=== PATIENT | female | born 1985 | race Caucasian/White ===

== ENCOUNTER 2016-06-26 06:56 | Observation (INO) ==
[2016-06-26] MEDS ORDERED: *HR* FentaNYL (PF) 100 MCG/2 ML VIAL IVP ONE (07:15)
[2016-06-26] MEDS ORDERED: Ondansetron 4 MG/2 ML VIAL IVP STA (07:15)
--- NOTE | 2016-06-26 07:17 | Emergency Department Note ---
Disposition Clinical Impression: Acute appendicitis, uncomplicated Disposition: Admitted As Inpatient Condition: Good Referrals: NO,PCP [Primary Care Provider] - Forms: Work/School Release, ED Satisfaction Letter Abdominal Pain HPI - General Chief Complaint: ED Abdominal Pain Stated Complaint: Abd Pain Time Seen by Provider: 06/26/16 07:02 Source: patient Nursing Notes Reviewed: Yes Vital Signs Reviewed: Yes - History of Present Illness HPI Narrative: 30-year-old female with no reported history presents to the ED with a chief complaint of abdominal pain. She reports 24 hours of sharp, constant abdominal pain that was progressive in onset. She reports that beginning periumbilically and migrating to the right lower quadrant. She has had some nausea without vomiting. Subjective chills without measured fever. She denies any adnexal or pelvic pain. She has had no pelvic discharge or bleeding. She has had a tubal ligation in the past and denies current . Pain does not radiate into her back or flank. Pain Scale: 4 All systems ED: reviewed and negative except as stated. Constitutional: Reports: chills. Denies: fever Cardiovascular: Denies: chest pain Respiratory: Denies: cough, dyspnea Gastrointestinal: Reports: abdominal pain, nausea. 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 S1, S2. No murmurs, rubs or gallops. Respiratory: Breath sounds clear bilaterally. No wheezing, rales or rhonchi. No resp distress Abdomen: Abdomen is soft without any rebound or rigidity. She does have some voluntary guarding with palpation of the right lower quadrant. There is no palpable hernia or mass. She has normal bowel sounds throughout. Negative Flores's. Eyes: No scleral icterus, conjunctiva clear HENT: No oral mucosal lesions. Moist mucous membranes Neuro: Alert and oriented 3 Musculoskeletal: No joint tenderness or swelling Skin: No lesions. No diaphoresis. Normal turgor. Normal color Psych: Appropriate - General Limitations: no limitations General appearance: alert, in no apparent distress, appears intoxicated Course Course Narrative: Presents with 24 hours of abdominal pain. On exam she has right lower quadrant focal tenderness. She is afebrile and appears well. Labs reveal leukocytosis at 14.8. We did perform a CT scan of the abdomen which shows dilation of the appendix with periappendiceal stranding consistent with acute appendicitis. Patient's pain and nausea controlled in the emergency department. I discussed with the on-call surgeon, Dr. Soto who will come evaluate the patient in the emergency department. Vital Signs Temperature 97.8 F 06/26/16 06:59 Pulse Rate 117 06/26/16 06:59 Respiratory Rate 16 06/26/16 06:59 Blood Pressure 123/89 06/26/16 06:59 O2 Sat by Pulse Oximetry 99 06/26/16 06:59 Temperature 97.8 F 06/26/16 06:59 Pulse Rate 94 06/26/16 07:58 Respiratory Rate 16 06/26/16 07:58 Blood Pressure 122/84 06/26/16 07:58 O2 Sat by Pulse Oximetry 96 06/26/16 07:58 Oxygen Delivery Oxygen Delivery Room Air Abdominal Pain - Lab Data Result diagrams: 06/26/16 07:38 06/26/16 07:38 Lab Results 06/26/16 06/26/16 06/26/16 Range/Units 07:38 07:38 07:42 WBC 14.8 H (4.3-11.1) K/mcL RBC 5.43 H (3.82-4.97) M/mcL Hgb 14.5 (11.5-15.4) g/dL Hct 43.9 (35.3-44.9) % MCV 80.8 L (83.0-100.0) fL MCH 26.7 L (28.0-33.3) pg MCHC 33.0 (31.6-35.5) g/dL RDW 13.4 (11.5-14.5) % Plt Count 224 (140-400) K/mcL MPV 11.7 (9.4-12.4) fL Immature Gran % 0.3 (0-4) % Seg Neutrophils % 77.4 % Lymphocytes % 14.5 % Monocytes % 6.4 % Eosinophils % 1.1 % Basophils % 0.3 % Neutrophils # 11.5 H (1.6-8.9) K/mcL Lymphocytes # 2.1 (0.6-4.6) K/mcL Monocytes # 0.9 (0.0-1.3) K/mcL Eosinophils # 0.2 (0.0-0.6) K/mcL Basophils # 0.1 (0.0-0.2) K/mcL Sodium 138 (136-145) mEq/L Potassium 4.0 (3.5-4.5) mEq/L Chloride 107 (98-109) mEq/L Carbon Dioxide 22 (19-29) mEq/L BUN 10 (7-20) mg/dL Creatinine 0.76 (0.57-1.11) mg/dL Est GFR ( Amer) > 60 (> 60) Est GFR (Non-Af Amer) > 60 (> 60) BUN/Creatinine Ratio 13 (6-26) Glucose 104 H (70-99) mg/dL Calculated Osmolality 285 (280-300) Calcium 9.5 (8.6-10.8) mg/dL Urine Color Yellow (Yellow) Urine Clarity Slightly Hazy (Clear) Urine pH 7.0 (5.0-8.0) pH Units Ur Specific [place] 1.014 (1.010-1.025) Urine Protein Negative (Neg-Trace) mg/dL Urine Glucose (UA) Normal (Normal) mg/dL Urine Ketones Negative (Negative) mg/dL Urine Blood Moderate H (Negative) Urine Nitrite Negative (Negative) Urine Bilirubin Negative (Negative) Urine Urobilinogen Normal (Normal) mg/dL Ur Leukocyte Esterase Negative (Negative) Urine Microscopic RBC 0-3 (0-3) per hpf Urine Microscopic WBC 0-3 (0-3) per hpf Ur Squamous Epith Cells Many H (None-Few) per lpf Urine Bacteria Few (None-Few) per hpf Hyaline Casts None Seen (None-Few) per lpf Urine Mucus Few (Few) Urine Test (Negative) 06/26/16 Range/Units 07:42 WBC (4.3-11.1) K/mcL RBC (3.82-4.97) M/mcL Hgb (11.5-15.4) g/dL Hct (35.3-44.9) % MCV (83.0-100.0) fL MCH (28.0-33.3) pg MCHC (31.6-35.5) g/dL RDW (11.5-14.5) % Plt Count (140-400) K/mcL MPV (9.4-12.4) fL Immature Gran % (0-4) % Seg Neutrophils % % Lymphocytes % % Monocytes % % Eosinophils % % Basophils % % Neutrophils # (1.6-8.9) K/mcL Lymphocytes # (0.6-4.6) K/mcL Monocytes # (0.0-1.3) K/mcL Eosinophils # (0.0-0.6) K/mcL Basophils # (0.0-0.2) K/mcL Sodium (136-145) mEq/L Potassium (3.5-4.5) mEq/L Chloride (98-109) mEq/L Carbon Dioxide (19-29) mEq/L BUN (7-20) mg/dL Creatinine (0.57-1.11) mg/dL Est GFR ( Amer) (> 60) Est GFR (Non-Af Amer) (> 60) BUN/Creatinine Ratio (6-26) Glucose (70-99) mg/dL Calculated Osmolality (280-300) Calcium (8.6-10.8) mg/dL Urine Color (Yellow) Urine Clarity (Clear) Urine pH (5.0-8.0) pH Units Ur Specific [place] (1.010-1.025) Urine Protein (Neg-Trace) mg/dL Urine Glucose (UA) (Normal) mg/dL Urine Ketones (Negative) mg/dL Urine Blood (Negative) Urine Nitrite (Negative) Urine Bilirubin (Negative) Urine Urobilinogen (Normal) mg/dL Ur Leukocyte Esterase (Negative) Urine Microscopic RBC (0-3) per hpf Urine Microscopic WBC (0-3) per hpf Ur Squamous Epith Cells (None-Few) per lpf Urine Bacteria (None-Few) per hpf Hyaline Casts (None-Few) per lpf Urine Mucus (Few) Urine Test Negative (Negative) Attestation Statement - Attestation Attestation: I examined this patient and my medical decision-making was reviewed with the Resident Physician. I agree with the documented findings, disposition and treatment plan as described except to the extent set forth below. Clinical suspicion for appy is moderate. Has diffuse pain migrating to RLQ/ right flank. No fever, has nausea without vomiting. Significant anorexia. Tender a few cm superior to McBurney's point, no guarding/peritonitis. CT c/w uncomplicated appy. Surgery consulted.
[2016-06-26 07:48] LABS: Basophils # 0.1 K/mcL (0.0-0.2); Basophils % 0.3 %; Eosinophils # 0.2 K/mcL (0.0-0.6); Eosinophils % 1.1 %; Hematocrit 43.9 % (35.3-44.9); Hemoglobin 14.5 g/dL (11.5-15.4); Immature Granulocytes % 0.3 % (0-4); Lymphocytes # 2.1 K/mcL (0.6-4.6); Lymphocytes % 14.5 %; Mean Corpuscular Hemoglobin 26.7 pg (28.0-33.3); Mean Corpuscular Volume 80.8 fL (83.0-100.0); Mean Platelet Volume 11.7 fL (9.4-12.4); Monocytes # 0.9 K/mcL (0.0-1.3); Monocytes % 6.4 %; Neutrophils # 11.5 K/mcL (1.6-8.9); Platelet Count 224 K/mcL (140-400); Red Blood Count 5.43 M/mcL (3.82-4.97); Red Cell Distribution Width 13.4 % (11.5-14.5); Segmented Neutrophils % 77.4 %
[2016-06-26 08:02] LABS: Bilirubin,Urine Negative (Negative); Blood,Urine Moderate (Negative); Color,Urine Yellow (Yellow); Glucose,Urine (UA) Normal (Normal); Ketones,Urine Negative (Negative); Leukocyte Esterase,Urine Negative (Negative); Nitrite,Urine Negative (Negative); Protein,Urine Negative (Neg-Trace); Specific Gravity,Urine 1.014 (1.010-1.025); Urobilinogen,Urine Normal (Normal)
[2016-06-26 08:02] LABS: BUN/Creatinine Ratio 13 (6-26); Blood Urea Nitrogen 10 mg/dL (7-20); Calcium 9.5 mg/dL (8.6-10.8); Carbon Dioxide 22 mEq/L (19-29); Chloride 107 mEq/L (98-109); Glucose 104 mg/dL (70-99); Osmolality,Calculated 285 (280-300); Sodium 138 mEq/L (136-145); eGFR For African Americans > 60 (> 60); eGFR For Non-African Americans > 60 (> 60)
[2016-06-26 08:05] LABS: Bacteria,Urine Few per hpf (None-Few); Hyaline Casts,Urine None Seen per lpf (None-Few); RBC,Urine 0-3 per hpf (0-3); Squamous Epithelial Cell,Urine Many per lpf (None-Few); WBC,Urine 0-3 per hpf (0-3)
[2016-06-26 08:15] LABS: Clarity,Urine Slightly Hazy (Clear)
[2016-06-26 08:34] LABS: Mucus,Urine Few (Few)
[2016-06-26] MEDS ORDERED: *HR* Morphine 2 MG/ML SYRINGE IVP STA (08:50)
[2016-06-26] MEDS ORDERED: cefOXitin 2,000 MG in D5% in Water (Mini-Bag+) 100 ML IVPB ONE (09:16)
[2016-06-26] MEDS ORDERED: *HR* FentaNYL (PF) 100 MCG/2 ML VIAL ONE ×2 (09:28→10:25)
[2016-06-26] MEDS ORDERED: *HR* Propofol 200 MG/20 ML VIAL IVP ONE (09:28)
[2016-06-26] MEDS ORDERED: Lidocaine -MPF 2% 2 ML VIAL ONE (09:29)
[2016-06-26] MEDS ORDERED: *HR* Rocuronium Bromide 50 MG/5 ML VIAL ONE (09:29)
[2016-06-26] MEDS ORDERED: Ondansetron 4 MG/2 ML VIAL ONE (09:29)
[2016-06-26] MEDS ORDERED: *HR* Midazolam HCl 2 MG/2 ML VIAL ONE (09:29)
[2016-06-26] MEDS ORDERED: *HR* Succinylcholine 200 MG/10 ML VIAL IVP ONE (09:29)
[2016-06-26] MEDS ORDERED: Dexamethasone 4 MG/ML VIAL ONE (09:29)
--- NOTE | 2016-06-26 09:46 | Anesthesia Evaluation PreOp ---
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 Significant HX Other Medical History: Denies Any Significant HX Anesthesia History: No Prior Anesthetic Complications : No Test: Negative Alcohol Use: none Drug use: none Medications and Allergies Multivitamin [Multi-Day Vitamins] 1 tab PO DAILY 06/26/16 [History] Allergies No Known Allergies Allergy (Verified 06/26/16 09:17) - Meds/Allergy Pre-op Review Medications Reviewed: Yes Allergies Reviewed: Yes Beta Blockers on Current Med List: No Anesthesia Results - Labs 06/26/16 07:38 06/26/16 07:38 Anesthesia Exam O2 Sat Height 1.6 m Weight 65.771 kg O2 Sat by Pulse Oximetry 98 O2 Sat by Pulse Oximetry 96 O2 Sat by Pulse Oximetry 99 Vital Signs Temp Pulse Resp BP Pulse Ox 97.8 F 117 16 123/89 99 06/26/16 06:59 06/26/16 06:59 06/26/16 06:59 06/26/16 06:59 06/26/16 06:59 Height: 5'3 Weight: 145 lbs NPO (# of Hours): MN Pain Scale: 0 - HEENT Pupil (Motor): Pupils equal, EOMI Mallampati: II Teeth: Normal Oral Opening: Greater than 3 - WOODS OVERSEER LOC: Oriented WOODS OVERSEER Motor: Normal RUE, Normal LUE, Normal RLE, Normal LLE, Normal Face WOODS OVERSEER Sensory: Normal: RUE, LUE, RLE, LLE, Face - Cardiac Rhythm: Regular Murmur: None JVD: No Carotid Bruit: No - Pulmonary Breath Sounds: bilateral Clear Respiratory Effort: Symmetrical Anesthesia Assess/Plan ASA Score: 1 Modified [place] Scale for Level of Consciousness: Cooperative, oriented, and tranquil Anesthetic Plan: General Monitoring Plan: Standard Monitors Recovery Plan: PACU (Discussed GA, agrees to proceed)
[2016-06-26] MEDS ORDERED: Famotidine 20 MG/2 ML VIAL ONE (09:48)
[2016-06-26] MEDS ORDERED: Acetaminophen IV 1,000 MG/100 ML INFUS..BTL ONE (09:49)
--- NOTE | 2016-06-26 10:00 | General Surg History&Physical ---
Date of Encounter: 06/26/16 Time of Encounter: 09:58 Assessment and Plan (1) Acute appendicitis, uncomplicated Current Visit: Yes Status: Acute The assessment and plan as outlined above was discussed with the patient and/or family members who expressed understanding and agreement. All questions were answered. Plan for laparoscopic appendectomy. Risks, benefits, and expected outcomes explained to the patient and she agrees to proceed. History of Present Illness HPI: Ms. Ramirez is a 30 year old female that presents to the emergency department with 12-16 hours of right lower quadrant pain. Patient states she has never had anything like this in the past. States the pain is persistent rates it as approximate 7 out of 10. It sharp in nature. She admits to anorexia at this time. Denies any nausea vomiting. She denies fever. Past Med Surg Social Fam HX - Past Medical History Medical history: no medical history Psychiatric history: no psych history - Past Surgical History Surgical History: other (Tubal ligation) - Social History Smoking Status: Never smoker Smokeless Tobacco Status: No Alcohol use: none Drug use: none Medications and Allergies Multivitamin [Multi-Day Vitamins] 1 tab PO DAILY 06/26/16 [History] Allergies No Known Allergies Allergy (Verified 06/26/16 09:17) Review of Systems All systems PM: A 10-system review of systems was performed and is negative for pertinent findings except as documented above in the HPI. General Surgery Exam Initial Vital Signs Temp Pulse Resp BP Pulse Ox 97.8 F 117 16 123/89 99 06/26/16 06:59 06/26/16 06:59 06/26/16 06:59 06/26/16 06:59 06/26/16 06:59 - Eyes PERRL, normal ocular movement - ENT normal nares, normal mucosa - Neck no bruits, trachea midline - Respiratory normal expansion, normal respiratory effort - Cardiovascular Cardiovascular exam: Present: NR, no murmurs/rubs/gallops - Abdomen Abdomen general surgery: Present: tender Abdominal Tenderness: Present: RLQ - Integumentary Integumentary general surgery: Present: warm and dry, no abnormal pigmentation - Musculoskeletal Present: normal gait, normal posture Results - Labs 06/26/16 07:38 06/26/16 07:38 Abnormal lab results WBC 14.8 K/mcL (4.3-11.1) H 06/26/16 07:38 RBC 5.43 M/mcL (3.82-4.97) H 06/26/16 07:38 MCV 80.8 fL (83.0-100.0) L 06/26/16 07:38 MCH 26.7 pg (28.0-33.3) L 06/26/16 07:38 Neutrophils # 11.5 K/mcL (1.6-8.9) H 06/26/16 07:38 Glucose 104 mg/dL (70-99) H 06/26/16 07:38 Urine Blood Moderate (Negative) H 06/26/16 07:42 Ur Squamous Epith Cells Many per lpf (None-Few) H 06/26/16 07:42 All other labs normal. - Imaging CT scan - abdomen: image reviewed CT scan - pelvis: image reviewed
[2016-06-26] MEDS ORDERED: Ondansetron 4 MG/2 ML VIAL IVP PRN ×2 (10:14→11:53)
[2016-06-26] MEDS ORDERED: *HR* OxyCODONE/APAP 5/325 TABLET PO PRN ×2 (10:14→11:53)
[2016-06-26] MEDS ORDERED: Ibuprofen 600 MG TABLET PO PRN ×2 (10:14→11:53)
[2016-06-26] MEDS ORDERED: 0.9 % Sodium Chloride 1,000 ML IVC SCH ×2 (10:15→11:53)
--- NOTE | 2016-06-26 10:18 | Operative Note ---
Date of procedure: 06/26/16 Pre-op diagnosis: Appendicitis Post-op diagnosis: same Procedure: Laparoscopic appendectomy Anesthesia: DARYN Surgeon: Guillermo Soto Estimated blood loss (cc): 5 Specimen: appendix Condition: stable Disposition: floor Procedure in Detail: After informed consent, patient was taken to the operating room placed in supine position. After adequate sedation anesthesia the abdomen was prepped and draped. A 12 mm cannula was placed in the umbilicus. A 5 mm cannulas placed in suprapubic region and the left lower quadrant. Camera was inserted and the abdomen after a pneumoperitoneum. 2 Latoya graspers were used to identify the base of the appendix. A appendiceal window was created. A JENNIFER endoscopic stapler was placed across the base. A vascular load was placed across the mesoappendix. Once the appendix was was placed in an Endobag and removed through the umbilicus. The right lower quadrant was suctioned dry no bleeding was identified. Remainder the pneumoperitoneum was evacuated. The umbilicus was closed with an 0 Vicryl suture in [id number] fashion. Skin was closed with 4-0 Vicryl suture and Dermabond.
[2016-06-26] MEDS ORDERED: Ketorolac 30 MG/ML VIAL ONE (10:36)
[2016-06-26] MEDS ORDERED: *HR* HYDROmorphone (PF) 1 MG/ML SYRINGE IVP PRN (10:37)
[2016-06-26] MEDS ORDERED: *HR* Promethazine 25 MG/ML VIAL IVP PRN (10:37)
--- NOTE | 2016-06-26 11:27 | Anesthesia Evaluation Post Op ---
Date of Encounter: 06/26/16 Time of Encounter: 11:26 - Vital Signs Vital Signs: Vital Signs/O2 Sat/Glucose, Most Current Temp Pulse Resp BP Pulse Ox 06/26/16 11:19 66 16 138/95 99 06/26/16 11:09 96 16 143/96 97 06/26/16 10:59 97.4 F L 85 14 133/97 100 06/26/16 09:36 15 121/81 06/26/16 09:17 97 16 113/87 98 06/26/16 07:58 94 16 122/84 96 - Lungs Lungs: Clear Ascult./Percussion - Airway Airway: Non-obstructed - Cardiovascular Regular Rate - Mental Status Mental Status: Alert & Oriented, Answers Appropriately - Nausea Vomiting Nausea Vomiting: Not Present - Hydration Hydration: Ice chips - Discharge PostOp Status: Transfer Patient to floor (no anesthesia complications VSS)
--- NOTE | 2016-06-26 14:54 | Discharge Summary ---
Date of Encounter: 06/26/16 Time of Encounter: 14:52 - Discharge Diagnosis (1) Acute appendicitis, uncomplicated Priority: Primary Status: Acute - Discharge Medications Prescriptions: OxyCODONE/APAP 5/325 [Percocet 5/325 MG] 1 each PO Q4HR PRN #90 tablet PRN Reason: Moderate Pain Ondansetron ODT [Zofran ODT] 4 mg SL Q8HR PRN #15 tab.rapdis PRN Reason: Nausea And Vomiting Home Medications: Multivitamin [Multi-Day Vitamins] 1 tab PO DAILY 06/26/16 [History] Ondansetron ODT [Zofran ODT] 4 mg SL Q8HR PRN #15 tab.rapdis 06/26/16 [Rx] OxyCODONE/APAP 5/325 [Percocet 5/325 MG] 1 each PO Q4HR PRN #90 tablet 06/26/16 [Rx] Allergies/Adverse Reactions: Allergies No Known Allergies Allergy (Verified 06/26/16 09:17) General Surgery Exam Initial Vital Signs Temp Pulse Resp BP Pulse Ox 97.8 F 117 16 123/89 99 06/26/16 06:59 06/26/16 06:59 06/26/16 06:59 06/26/16 06:59 06/26/16 06:59 - General physical appearance well developed, well nourished, no distress, no pain - Neck no masses, trachea midline - Respiratory normal expansion, normal respiratory effort, clear to percussion, clear to auscultation - Cardiovascular Cardiovascular exam: Present: RRR, no murmurs/rubs/gallops - Abdomen Abdomen general surgery: Present: bowel sounds present, soft, non tender - Incision Incision: Present: clean and dry - Neurologic Present: CN 2-12 grossly intact, normal coordination, normal sensation - Psychiatric Psychiatric general surgery: Present: appropriate, oriented to person, oriented to place, oriented to time, speech is normal, memory intact Date of admission: 06/26/16 09:32 Primary care physician: PCP JEFF Discharging clinician: Guillermo Soto Anticipated date of discharge: 06/26/16 - Patient Status Disposition: Home, Self-Care Condition: Good Functional capacity at discharge: independent ambulation Overall status at discharge: patient is progressing back to baseline - Discharge Instructions Instructions: Appendicitis (DC) Follow Up With: NO,PCP [Primary Care Provider] - Malini Phoenix, TRACK ANNOUNCER [Advanced Practice Nurse] - Forms: Inpatient Work/School Release Additional Instructions: Follow up in 2 weeks. Take the percocet 5mg every 4 hours as needed for pain. Take the zofran every 8 hours as needed for nausea. Increase your diet as tolerated. Increase your activity as tolerated. Do not shower for 24 hours after surgery. Keep the incision sites clean and dry, you may use warm soapy water to gently cleanse the area. May return to work 07/08/16. Contact your healthcare provider if: You are not able to have a bowel movement. You have a fever. You have chills, a cough, or feel weak and achy. You have nausea or vomiting that is not controlled with zofran. You have questions or concerns about your surgery, condition, or care. Seek care immediately or call 911 if: Blood soaks through your bandage. You feel full and cannot burp or vomit. You have pus or a foul-smelling odor coming from your wound. Your vomit is greenish, looks like coffee grounds, or has blood in it. - Diet and Activity Activity: increase activity as tolerated Diet: advance to your usual diet (as tolerated) - Hospital Course Hospital course: Ms. Ramirez is a 30 year old female is s/p laparoscopic appendectomy performed 12/[address] Soto. The procedure was performed without complication. The skin incisions were closed with 4-0 Vicryl and dermabond. The patient has minimal pain and nausea. She is doing well and will be discharged home in stable condition. She was advised to keep the incisions clean and dry, to increase diet and activity as tolerated. She will follow up in 2 weeks. She was provided a prescription for percocet 5mg every 4 hours as needed for pain and for odt zofran every 8 hours as needed for nausea. The patient was also provided a return to work note for 07/08/16. All questions were answered and the patient states agreement with and understanding of the plan and instructions provided. - Time Spent with Patient Total time spent providing and/or coordinating discharge services:
[2016-06-26 17:53] VITALS: BP 122/83
== END 2016-06-26 17:20 | disposition home or self-care (01) ==
LOC: 3BNU 06:56 → EMEROO 06:56 → 3BNU 09:48
PROVIDERS: ADMIT Surgery; ATTEND Surgery